=== PATIENT | female | born 1990 | race Caucasian/White ===

== ENCOUNTER 2018-07-09 16:30 | Emergency (ER) | payer MEDICAID ==
[~2018-07-09] VITALS: Ht 167.6 cm; Wt 77.5 kg
[2018-07-09 16:34] VITALS: TEMP 97
[2018-07-09 16:57] LABS: COLLECTION METHOD CLEAN CATCH
[2018-07-09 17:05] LABS: AMORPHOUS CRYSTAL Present /uL; MUCOUS Present /lpf; PH 5 (5-8); URINE APPEARANCE Hazy; URINE BACTERIA None Seen /hpf; URINE BILIRUBIN Negative (NEGATIVE); URINE BLOOD 1+ (NEGATIVE); URINE COLOR Yellow; URINE GLUCOSE Negative (NEGATIVE); URINE KETONE Trace (NEGATIVE); URINE LEUKOCYTE ESTERASE Trace (NEGATIVE); URINE NITRATE Negative (NEGATIVE); URINE PROTEIN(semi-quant) 1+ (NEGATIVE); URINE RBC 0-2 /hpf; URINE UROBILINOGEN Negative (NEGATIVE)
[2018-07-09 17:42] LABS: BASO % 0.3 % (0.0-2.0); EOS # 0.1 (0.0-0.7); EOS % 0.8 % (0-4.0); GRAN # 4.8 (1.4-6.5); HEMATOCRIT 43.1 % (37.0-47.0); HEMOGLOBIN 14.2 g/dl (12.5-16.0); LYMPH # 0.8 (1.2-3.4); MEAN CELL VOLUME 88 fl (80.0-100.0); MEAN CORPUSCULAR HEMOGLOBIN 29 pg (27.0-31.0); MEAN CORPUSCULAR HGB CONC 33 g/dl (33.0-37.0); MEAN PLATELET VOLUME 11.3 fl (7.4-10.4); MONO # 0.2 (0.1-0.6); MONO % 3.4 % (1.7-9.3); PLATELET COUNT 153 K/mm3 (130-400); RED BLOOD COUNT 4.89 M/mm3 (4.10-5.30); REDCELL DISTRIBUTION WIDTH-CV 12.5 % (11.5-14.5)
[2018-07-09 17:52] LABS: ALBUMIN 4.7 gm/dL (3.5-5.0); BILIRUBIN,TOTAL 0.4 mg/dL (0.0-1.0); CALCIUM 9.9 mg/dL (8.4-10.2); CREATININE, serum 0.66 (0.52-1.25); POTASSIUM 3.9 mmol/L (3.4-5.0); TOTAL PROTEIN 8.1 gm/dL (6.4-8.2)
[2018-07-09] MEDS ORDERED: ZOFRAN 4MG T4 MG/TAB PO (19:54)
[2018-07-09] MEDS ORDERED: NORCO 325 MG-51 TAB PO (19:54)
[2018-07-09 20:06] VITALS: BP 147/89; PULSE 78
== END 2018-07-09 20:06 | disposition home or self-care (01) ==
LOC: COL.ER 16:30
PROVIDERS: Emergency Medicine
DX: N20.0 Calculus of kidney (principal)
CPT/HCPCS: J0780; J1170; J7030; Q9967

== ENCOUNTER 2018-07-13 11:56 | Inpatient (IN) | payer MEDICAID ==
[~2018-07-13] VITALS: Ht 167.6 cm; Wt 74.3 kg
[~2018-07-13 11:56] MED LIST: NORCO 325 MG-51 TAB PO; ZOFRAN 4MG T4 MG/TAB PO
[2018-07-27] VITALS (21 sets, daily range): BP systolic 111–1347; BP diastolic 56–88; PULSE 54–98; TEMP 97.9–98.3
[2018-07-27] MEDS ORDERED: CIPRO 500MG TA500 MG PO (06:28)
--- NOTE | 2018-07-27 06:53 | NUR ---
27 year old female admitted to room 8 ambulatory with backpack and is alert and oriented x3. Voices understanding of surgery and consent signed. Heart rate regular. Lungs clear. Abdomen soft and flat. +2 bilateral radial and pedal pulses. Call light in reach and siderails up x2. Spouse Prakash in room. Prakash given ring and will take cellphone when patient goes for guidewire placement and surgery.
--- NOTE | 2018-07-27 07:40 | NUR ---
PT TRANSFERED TO CT TABLE. MONITORING EQUIPMENT PLACED. PT COMFORTABLE
--- NOTE | 2018-07-27 07:50 | NUR ---
PT WAS GIVEN 1 MG VERSED AND 50 FENTANYL IV SP.
--- NOTE | 2018-07-27 07:55 | NUR ---
PT GIVEN 0.5 VERSED AND 25 FENTANYL IVSP PAIN 09/13
--- NOTE | 2018-07-27 08:00 | NUR ---
PT HAVING LOTS OF PAIN. GIVEN 0.5 MG VERSED AND 25 FENTANYL
--- NOTE | 2018-07-27 08:10 | NUR ---
PT COACHED TO TAKE SLOW BREATHES AND RELAX. PT IS TRYING
--- NOTE | 2018-07-27 08:15 | NUR ---
PT WAS GIVEN 1 MG VERSED SIVP. PAIN IS STILL 7/10. PT TRANSFERED WITH 4 ASSIST SO SHE DOES NOT HAVE TO MOVE ON HER OWN. SITE IS CDI WIRE IS TAPED DOWN TO PERSON WITH TEGADERM.
--- NOTE | 2018-07-27 08:28 | NUR ---
Patient returns to room 8 per cart from radiology and is complaining of pain at 10/10 and moaning. States "It really hurts." Guidewire on the left side of back covered with Tegaderm dressing. IV fluids infusing and call light in reach. Rolling from stomach to the right side. Encouraged to take deep breaths and relax.
--- NOTE | 2018-07-27 08:43 | NUR ---
Resting and continues to have right sided guidewire insertion site pain. Dr. Johnson's office notified for pain medication.
--- NOTE | 2018-07-27 08:55 | NUR ---
Morphine 3mg IV given for pain as ordered. Tegaderm dressing reinforced.
--- NOTE | 2018-07-27 08:58 | NUR ---
Room air sats 97%. Slight nausea with emesis of 30cc's sputum. Cool cloth on forehead. Becoming more relaxed.
--- NOTE | 2018-07-27 09:13 | NUR ---
Resting on stomach and IV fluids.
--- NOTE | 2018-07-27 09:28 | NUR ---
Has been resting on stomach.
--- NOTE | 2018-07-27 10:06 | NUR ---
Moaning and complaining of pain. Very tense. Order for Fentnayl 50mcg obtained from Khoi Sullivan CRNA and given.
--- NOTE | 2018-07-27 10:30 | NUR ---
Resting with eyes closed. IV fluids infusing.
--- NOTE | 2018-07-27 10:55 | NUR ---
Awake and moaning intermittenly with complaints of pain from guidewire tube placement on the left side.
--- NOTE | 2018-07-27 11:08 | NUR ---
Moaning and crying out in pain. Order obtained for Dilaudid 0.5mg IV now and may give up to 2mg if needed.
--- NOTE | 2018-07-27 11:50 | NUR ---
Dilaudid 0.5mg IV repeated for pain. Room air sats 97%. Spouse in room.
--- NOTE | 2018-07-27 12:14 | NUR ---
Order recieved to cancel po Valium, Pecid, and Antivert by Khoi Sullivan CRNA at 1006.
--- NOTE | 2018-07-27 17:20 | NUR ---
Patient drowsy, easily arouses to verbal stimuli. See assessment. Suarez cather patient and draining small amount clear yellow urine. Drain to left flank patient and draining dark red drainage, dressing is intact. No c/o at this time.
--- NOTE | 2018-07-27 20:04 | NUR ---
Patient awake, reports pain 8/10 to left flank/back. Has large bulky dressing intact with catheter to BSD with bloody urine draining. Has escobar catheter to BSD with pink tinged urine. Medicated with Morphine 4mg IVP with Percocet 1 tablet po for pain. Denies nausea at this time. Applied warm blanket to left back for comfort. IVF to right FA without redness or swelling.
--- NOTE | 2018-07-27 22:50 | NUR ---
Patient reporting pain to left flank/back 7/10, slightly nauseated. Provided saltine crackers and water. Medicated with IV Morphine 4mg now and Zofran 4mg IV now also. Spouse at bedside.
[2018-07-28] VITALS (7 sets, daily range): BP systolic 84–132; BP diastolic 39–80; PULSE 59–84; TEMP 98–98.3
--- NOTE | 2018-07-28 00:09 | NUR ---
Reports pain 6/10, medicated with Percocet 2 tabs po at this time.
--- NOTE | 2018-07-28 02:33 | NUR ---
Patient resting with eyes closed. IV antibiotic infusing without redness or swelling.
--- NOTE | 2018-07-28 03:50 | NUR ---
Patient reports pain to back 5/10. Medicated with Percocet 2 tabs po at this time. Instructed patient to let this nurse know if she needs IV Morphine for unresolved pain.
--- NOTE | 2018-07-28 09:55 | NUR ---
PATIENT RECENTLY BACK FROM BATHROOM TO VOID AND IS C/O SEVERE PAIN IN LEFT FLANK. GAVE PRN MORPHINE IV. PATIENT RESTING WITH AT BEDSIDE. WILL MONITOR.
--- NOTE | 2018-07-28 10:09 | NUR ---
BRIDGER met with the patient and patient's life partner, Prakash, to discuss discharge plan. The patient lives in [place] with her life partner, their four children, her mother, and then two other children. She reports independence with ADLs and does not use any DME. The patient's PCP is Dr. Gloria Washburn and she receives her medications at [facility]. She reports no difficulties obtaining her meds. The patient does not have advanced directives and she was not interested in completing them at this time. The patient plans to return home with her family upon discharge. No additional needs at this time.
--- NOTE | 2018-07-28 12:22 | NUR ---
PATIENT UP TO BATHROOM AGAIN. VOIDING SUFFICENT AMOUNTS OF RED-TINGED URINE. PATIENT REPORTS PAIN WITH URINATION IN THE KIDNEY DURING VOIDING. NEPH TUBE CLAMPED AND DRESSING IS CD&I. PATIENT REPORTS PAIN IS BETTER AT REST. REQUESTING PAIN MEDS. GAVE PRN PERCOCET. PATIENT NOW RESTING IN BED WITH AT BEDSIDE.
--- NOTE | 2018-07-28 14:45 | NUR ---
PATIENT HAVING INCREASED PAIN WITH ACTIVITY. GAVE PRN MORPHIN IV. LEFT NEPH TUBE BACK TO DD WITH SMALL AMOUNTS OF SANGUANOUS DRAINAGE NOTED. WILL MONITOR.
--- NOTE | 2018-07-28 17:45 | NUR ---
PATIENT REPORTS PAIN IN LEFT KIDNEY IS MUCH BETTER SINCE BACK TO DD. NOTED 300CC OUTPUT FROM NEPH TUBE SINCE CLAMPED AT 1445. PATIENT RESTING COMFORTABLY WITH NO NEEDS. ATE FULL SUPPER. IV TO INT. NO OTHER NEEDS.
--- NOTE | 2018-07-28 20:21 | NUR ---
Patient in bed, reports pain 6/10 to left flank/nephrostomy site. Is alert and oriented x4. Has SL to right wrist without redness or swelling. Medicated with Percocet 2 tabs po at this time. Has bulky dressing to left nephrostomy site D/I. Is voiding without problem, blood tinged urine. Lungs clear throughout.
--- NOTE | 2018-07-28 22:11 | NUR ---
Patient up to bathroom, increased pain to left back. Medicated with Morphine 4mg IV at this time for pain 10/14. Nephrostomy tube draining red urine.
[2018-07-29 04:11] VITALS: BP 122/63; PULSE 84; TEMP 97.8
--- NOTE | 2018-07-29 04:14 | NUR ---
Patient up to void, reports pain to left back 8/10. Using breast pump at this time.
--- NOTE | 2018-07-29 07:21 | NUR ---
Nephrostomy tube clamped at this time.
[2018-07-29 07:58] VITALS: BP 122/66; PULSE 75; TEMP 98.7
--- NOTE | 2018-07-29 10:00 | NUR ---
Patient alert and oriented, answers questions appropriately. See assessment. Left nephrostomy tube in place and clamped, dressing CDI. Patient voiding. No c/o urinary frequency, hesitancy or burning. C/o pain 10/[address] Hansen notified and will be here to remove nephrostomy tube. No other c/o at this time.
--- NOTE | 2018-07-29 10:39 | NUR ---
Patient was sleeping.
[2018-07-29 11:00] VITALS: BP 122/66; PULSE 75; TEMP 98
--- NOTE | 2018-07-29 11:34 | NUR ---
Patient was sleeping.
[2018-07-29 15:00] VITALS: BP 123/66; PULSE 70; TEMP 98.3
--- NOTE | 2018-07-29 15:43 | NUR ---
Discharge instructions reviewed with patient and spouse, verbalized understanding. Discharged via wheelchair to auto/home with spouse at 1540.
== END 2018-07-29 15:40 | disposition home or self-care (01) | DRG 660 ==
LOC: INPTSU 07-27 05:35 → SURG 07-27 07:30
PROVIDERS: ADMIT Urology
PROC: 0T9430Z Drainage of Left Kidney Pelvis with Drainage Device, Percutaneous Approach (ICD-10-PCS; 2018-07-27)
PROC: 0T774DZ Dilation of Left Ureter with Intraluminal Device, Percutaneous Endoscopic Approach (ICD-10-PCS; 2018-07-27)
PROC: BT1F1ZZ Fluoroscopy of Left Kidney, Ureter and Bladder using Low Osmolar Contrast (ICD-10-PCS; 2018-07-27)
PROC: 0TF44ZZ Fragmentation in Left Kidney Pelvis, Percutaneous Endoscopic Approach (ICD-10-PCS; principal; 2018-07-27 13:00)
DX: N20.0 Calculus of kidney (principal); T83.84XA Pain due to genitourinary prosthetic devices, implants and grafts, initial encounter; G89.18 Other acute postprocedural pain; J45.909 Unspecified asthma, uncomplicated
CPT/HCPCS: A4314; A9284; C1726; C1729; C1758; C1769; C1894; C2617; J0690; J1100; J1170; J1885; J2250; J2270; J2405; J2704; J3010; J7120; Q9967

== ENCOUNTER 2023-03-25 11:04 | Outpatient (CLI) | payer BC, MEDICAID ==
[~2023-03-25] VITALS: Ht 167.6 cm; Wt 91.8 kg
[~2023-03-25 11:04] MED LIST changes: +CIPRO 500MG TA500 MG PO
--- NOTE | 2023-03-25 11:10 | NUR ---
PATIENT AMBULATORY TO UNIT WITH FRIEND, CARIN. PATIENT ORIENTED TO LABOR ROOM 3 AND ASISSTED INTO A GOWN. PATIENT REPORTS CONTRACTIONS YESTERDAY EVEYR 4 MINUTES THAT HAVE SLOWED TO EVERY 20 MINUTES TODAY, NO LEKAING OF FLUID OR BLEEDING BUT HAD SOME DISCHARGE WITH BLOODY MUCUS THI SMORNING, PATIENT REPORTS BABY HAS NOT MOVED MUCH TODAY. EFM AND TOCO PLACED AND TRACING. ASSESSMENTS COMPLETED, AFTER ASSESSMENTS PATIENT RPEORTS MOVEMENT SINCE SHE HAS BEEN HERE.
[2023-03-25 12:15] VITALS: BP 132/85; PULSE 109; TEMP 97.9
[2023-03-25 13:15] VITALS: BP 129/78; PULSE 85
[2023-03-25 14:15] VITALS: BP 133/76; PULSE 100
[2023-03-25 14:43] VITALS: BP 127/78; PULSE 102
--- NOTE | 2023-03-25 14:55 | NUR ---
DISCHARGE INSTRUCTIONS DISCUSSED WITH PATIENT, PATIENT DOES NOT VERBALIZE ANY QUESTIONS. PATIENT AMBULATORY OFF UNIT WITH FRIEND.
== END 2023-03-25 14:55 | disposition home or self-care (01) ==
LOC: LDRO 11:04
DX: O36.8130 Decreased fetal movements, third trimester, not applicable or unspecified (principal); O26.893 Other specified pregnancy related conditions, third trimester; E75.5 Other lipid storage disorders; Z3A.38 38 weeks gestation of pregnancy

== ENCOUNTER 2023-04-05 11:01 | Inpatient (IN) | payer BC, MEDICAID ==
[~2023-04-05] VITALS: Ht 152.4 cm; Wt 91.8 kg
[2023-04-07] VITALS (19 sets, daily range): BP systolic 105–167; BP diastolic 52–79; PULSE 71–124; TEMP 98.4–98.5
[2023-04-07 13:53] LABS: BASO % 0.3 % (0.0-2.0); EOS # 0.1 K/mm3 (0.0-0.7); EOS % 0.8 % (0.0-4.0); GRAN # 8.2 K/mm3 (1.4-6.5); GRAN % 81.9 % (42.2-75.2); HEMATOCRIT 37.3 % (37.0-47.0); HEMOGLOBIN 11.9 g/dl (12.5-16.0); LYMPH # 1.3 K/mm3 (1.2-3.4); LYMPH % 12.9 % (20.0-51.0); MEAN CELL VOLUME 83 fl (80.0-100.0); MEAN CORPUSCULAR HEMOGLOBIN 27 pg (27-31); MEAN CORPUSCULAR HGB CONC 32 g/dl (33.0-37.0); MEAN PLATELET VOLUME 11.5 fl (7.4-10.4); MONO # 0.3 K/mm3 (0.1-0.6); MONO % 3.4 % (1.7-9.3); PLATELET COUNT 157 K/mm3 (130-400); RED BLOOD COUNT 4.49 M/mm3 (4.10-5.30); REDCELL DISTRIBUTION WIDTH-CV 13.7 % (11.5-14.5)
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
--- NOTE | 2023-04-07 20:30 | NUR ---
1835 PATIENT SITS ON EDGE OF BED FOR EPIDURAL AT THIS TIME. Nereyda ZAMARRIPA REFERENCE TEST CLERK AT BEDSIDE. PATIENT TOLERTES WELL. SEE REFERENCE TEST CLERK NOTES FOR QUESTIONS.
[2023-04-08 04:15] VITALS: BP 104/66; PULSE 69; TEMP 97.8
[2023-04-08] MEDS ORDERED: MOTRIN 800800 MG/TAB PO (06:13)
[2023-04-08 07:20] VITALS: BP 107/56; PULSE 74; TEMP 98.2
--- NOTE | 2023-04-08 10:21 | NUR ---
Initial visit; Patient thanked for looking in on her and her son and offering congratulations and God's blessings. Daly has two more sons and two daughters at home. stated that she is a very strong woman especially after she spoke of some of the ill health challenges she has already faced with her children. prays for a healthy, blessed life for her new son and all her family.
[2023-04-08 11:25] VITALS: BP 130/68; PULSE 87; TEMP 98.7
[2023-04-08 15:40] VITALS: BP 120/70; PULSE 86; TEMP 97.9
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
[2023-04-08 21:00] VITALS: BP 114/60; PULSE 81; TEMP 98.8
[2023-04-09 08:45] VITALS: BP 131/69; PULSE 92; TEMP 98.1
== END 2023-04-09 11:20 | disposition home or self-care (01) | DRG 807 ==
LOC: OB 11:01 → LDR 04-07 12:04 → OB 04-07 22:53
PROVIDERS: ADMIT Obstetrics & Gynecology
PROC: 10D07Z6 Extraction of Products of Conception, Vacuum, Via Natural or Artificial Opening (ICD-10-PCS; principal; 2023-04-07)
PROC: 0UQMXZZ Repair Vulva, External Approach (ICD-10-PCS; 2023-04-07)
DX: O76 Abnormality in fetal heart rate and rhythm complicating labor and delivery (principal); Z37.0 Single live birth; O48.0 Post-term pregnancy; O99.824 Streptococcus B carrier state complicating childbirth; O77.0 Labor and delivery complicated by meconium in amniotic fluid; O70.0 First degree perineal laceration during delivery; Z3A.40 40 weeks gestation of pregnancy
CPT/HCPCS: J0665; J2540; J2590; J2795; J7120